=== PATIENT | male | born 1970 | race Two or more races ===

== ENCOUNTER 2024-07-05 09:27 | Emergency (ER) | payer MEDICAID, SELFPAY ==
--- NOTE | 2024-07-05 09:45 | XR_ITS ---
Examination: Duplex scan of the lower extremity, unilateral left Date and time of exam: July 05, 2024 1129 hours INDICATIONS: Left lower leg swelling and pain beginning 2 days ago Technique: Duplex scan of the extremity veins using B-mode/grayscale imaging and Doppler spectral analysis and color flow Attention is directed to internal echogenicity, compression and augmentation involving these veins, color flow assessment, spectral analysis Findings: Major deep venous structures in the extremity demonstrate normal course and caliber. There is no evidence of deep vein thrombosis. Normal color flow and spectral analysis Cystic area anterior knee 5.1 x 0.8 x 5.4 cm Impression: Negative for DVT..
--- NOTE | 2024-07-05 09:45 | XR_ITS ---
Examination: Knee, left , 3 views Technique: Knee AP, lateral, oblique 3 views Date and time of exam: July 05, 2024, 0957 hours INDICATIONS: Left knee swelling and pain beginning 3 weeks ago. FINDINGS: Severe osteopenia Old bone density anterior to the intercondylar spines No acute fracture Mild to moderate tricompartment osteoarthritis IMPRESSION: Mild to moderate tricompartment osteoarthritis
--- NOTE | 2024-07-05 09:45 | PD.EDLOWEX ---
Lower Extremity Injury RME/HPI General Chief Complaint: Extremity Injury, Lower Stated Complaint: SENT BY [facility] FOR XR OF L) KNEE; PAIN IN L) KNEE/FT Time Seen by Provider: 07/05/24 09:33 Source: patient Arrival date/time: 07/05/24 09:27 53-year-old male with no known medical history presents to the emergency room with a chief complaint of swelling and tenderness to his left knee and left calf x 4 days. Patient was sent over by his primary care provider to rule out a blood clot. Patient denies any trauma Mode of arrival: ambulatory Limitations: no limitations Related Data Home Medications ?Medication ?Instructions ?Recorded ?Confirmed No Known Home Medications 09/02/21 09/02/21 Allergies Allergy/AdvReac Type Severity Reaction Status Date / Time No Known Allergies Allergy Verified 07/05/24 09:36 Review of Systems Review of Systems Systems Reviewed: All systems reviewed, normal except as documented Constitutional Constitutional: Reports system reviewed and no additional complaints, except as documented, Denies fatigue, Denies fever(s), Denies headache(s) and Denies weakness Eyes Eyes: Reports system reviewed and no additional complaints, except as documented, Denies blurry vision and Denies change in vision ENT Ears, Nose, Mouth, and Throat: Reports system reviewed and no additional complaints, except as documented, Denies otalgia, Denies headache(s), Denies nasal congestion, Denies throat swelling and Denies vertigo Cardiovascular Cardiovascular: Reports system reviewed and no additional complaints, except as documented, Denies chest pain, Denies dyspnea and Denies dyspnea on exertion Respiratory Respiratory: Reports system reviewed and no additional complaints, except as documented, Denies chest congestion, Denies cough, Denies dyspnea, Denies dyspnea on exertion and Denies wheezing Gastrointestinal Gastrointestinal: Reports system reviewed and no additional complaints, except as documented, Denies abdominal pain, Denies cramping, Denies nausea and Denies vomiting Genitourinary Genitourinary: Reports system reviewed and no additional complaints, except as documented, Denies dysuria and Denies hematuria Musculoskeletal Musculoskeletal: Reports system reviewed and no additional complaints, except as documented, Reports arthralgias, Denies back pain and Reports joint swelling Integumentary/Breasts Skin/Breast: Reports system reviewed and no additional complaints, except as documented and Denies wounds Neurologic Neurologic: Reports system reviewed and no additional complaints, except as documented, Denies confusion, Denies headache(s), Denies lack of coordination, Denies vertigo and Denies weakness Psychiatric Psychiatric: Reports system reviewed and no additional complaints, except as documented, Denies anxiety, Denies confusion, Denies depression, Denies paranoia, Denies suicidal ideation and Denies tactile hallucinations Endocrine Endocrine: Reports system reviewed and no additional complaints, except as documented and Denies fatigue Hematologic/Lymphatic Hematologic/Lymphatic: Reports system reviewed and no additional complaints, except as documented and Denies lymphadenopathy Allergic/Immunologic Allergic/Immunologic: Reports system reviewed and no additional complaints, except as documented, Denies throat swelling, Denies urticaria and Denies wheezing ED Exam General Limitations: Present no limitations General appearance: Present alert and in no apparent distress Head Head exam: Present atraumatic Eye Eye exam: Present normal appearance, PERRL and EOMI ENT ENT exam: Present normal exam, normal oropharynx and mucous membranes moist Neck Neck exam: Present normal inspection, full ROM and trachea midline Chest Chest inspection: Present normal inspection and symmetric chest wall rise Respiratory Respiratory exam: Present normal lung sounds bilaterally Cardiovascular Cardiovascular exam: Present regular rate, normal rhythm and normal heart sounds Abdominal Exam Abdominal exam: Present soft and normal bowel sounds Extremities Exam Extremities exam: Present normal inspection and full ROM Expanded Lower Extremity Exam Hip/Pelvis exam: Present normal inspection Upper leg exam: Present normal inspection Knee exam: Present full ROM, tenderness, swelling and effusion; Absent erythema Lower leg exam: Present tenderness and Homans' sign Foot/toe exam: Present normal inspection Gait: observed and normal Back Exam Back exam: Present normal inspection and full ROM Neurological Exam Neurological exam: Present alert, oriented X3 and CN II-XII intact Psychiatric Psychiatric exam: Present normal affect and normal mood Skin Skin exam: Present warm, dry, intact and normal color Course Quality Measures none Orders Category Date Time Status US venous doppler LE LT Stat Exams 07/05/24 09:45 Completed XR knee LT 3V Stat Exams 07/05/24 09:45 Completed CBC Stat Lab 07/05/24 10:13 Completed CMP [Comprehensive Metabolic Panel] Stat Lab 07/05/24 10:13 Completed Uric Acid Stat Lab 07/05/24 10:13 Completed Ketorolac Inj [Toradol Inj] Med 07/05/24 09:47 Discontinued 30 mg IM X1 ONE Vital Signs Vital signs: Vital Signs Temperature 98.0 F 07/05/24 09:46 Pulse Rate 64 07/05/24 09:46 Respiratory Rate 16 07/05/24 09:46 Blood Pressure 131/86 H 07/05/24 09:46 Pulse Oximetry (%) 96 07/05/24 09:46 Oxygen Delivery Method Room Air 07/05/24 09:46 O2 saturation within normal limits Extremity Injury, Lower MDM Narrative MDM Narrative:: 53-year-old male with no known medical history presents to the emergency room with a chief complaint of swelling and tenderness to his left knee and left calf x 4 days. Patient was sent over by his primary care provider to rule out a blood clot. Patient denies any trauma Patient is hemodynamically stable and in no apparent distress Physical examination shows tenderness and pain to the left knee as well as left calf with a positive movements. There is no redness or warmth to the area there is a small mass above the left knee. Ultrasound Doppler of the lower extremity was completed and was negative for any DVT however there was an incidental cystic area of the anterior knee. The patient was educated to follow-up with his primary care provider for further management X-ray of the knee was completed and shows osteoarthritis Patient was discharged and educated to follow-up with primary care provider in the next 24 to 48 hours and return to the emergency room for any evidence of worsening signs or symptoms Patient data External records reviewed:: [facility] previous records Clinical information provided by:: patient Social determinants that could affect healthcare access:: none Patient has the following chronic illnesses:: No chronic illness How is presenting disease/condition affected by chronic disease/condition?: no chronic disease Evaluation data The following diagnostics were reviewed and interpreted by me:: lab results and radiology exam(s) Lab and/or radiology exams considered but not ordered:: Labs and radiology exams considered and ordered Interpretation Summary: Ultrasound Doppler lower extremity-indings: Major deep venous structures in the extremity demonstrate normal course and caliber. There is no evidence of deep vein thrombosis. Normal color flow and spectral analysis Cystic area anterior knee 5.1 x 0.8 x 5.4 cm Impression: Negative for DVT.. Medications / Prescriptions Medications or Prescriptions considered but not ordered:: Medication given Medication administrations:: Medication Administration History Discontinued Medications Ketorolac Tromethamine (Ketorolac Inj 60 Mg/2 Ml Vial) 30 mg IM X1 ONE Stop: 07/05/24 09:48 Last Admin: 07/05/24 10:53 Dose: 30 mg Documented By: KM Medication given Consultations Consultation(s) initiated? (list below): No Diagnosis Extremity Injury, Lower Differential Diagnosis: other (DVT/knee sprain/knee fracture/knee dislocation) Most likely diagnosis given after review of the tests above:: Knee sprain Admission Indicated Admission indicated?: not indicated Admission Request Was there a request for admission?: No Disposition Plan Disposition Plan: Discharge Discharge Attestation Discharge Attestation: The patient and all family members were given an opportunity to ask questions and understood the discharge instructions. Discharge instructions specifically effects, indications for sooner follow up or return to the emergency department, and the expected course of current diagnosis. Patient condition: Stable Discharge Plan Plan Patient Disposition: HOME (Self Care) Disposition Comment: Stable Prescriptions/Referrals Prescriptions/Med Rec: No Action No Known Home Medications Referrals: No Primary/Family,Physician [Primary Care Provider] - In 1 week Problem List Clinical Impression: Knee sprain Patient/Caregiver Discharge Instructions Education Materials: ED CHENG Wrap, ED Knee Sprain Additional Instructions: Por favor, consulte con lozano m?dico de cabecera en las pr?ximas 24 a 48 horas. La ecograf?a detect? roxi randy qu?stica en la parte anterior de la rodilla. Por favor, consulte con lozano m?dico de cabecera para el manejo de lupe hallazgo. Ante cualquier signo de empeoramiento de los signos o s?ntomas, acuda inmediatamente a urgencias. Print Language: Trinidadian Stand Alone Forms: [facility] Award Info., Patient Portal Info Letter PA/[employer] Supervising Physician ANN/[employer] Supervising Physician: Dr. Mahoney
[2024-07-05 09:46] VITALS: BP 131/86; PULSE 64; RESP 16; TEMP 36.7; O2SAT 96; BMI 37.2
[2024-07-05 10:30] LABS: Basophils # (Auto) 0.1 Thou/mm3 (0.0-0.2); Basophils % (Auto) 2 % (0-2.5); Eosinophils # (Auto) 0.3 Thou/mm3 (0.0-0.5); Eosinophils % (Auto) 5 % (0-10); Hematocrit 47.3 % (41.0-53.0); Immature Granulocytes % (Auto) 0 % (0-0); Immature Granulocytes Auto 0.01 Thou/mm3 (0.00-0.00); Lymphocytes # (Auto) 1.5 Thou/mm3 (1.0-4.8); Lymphocytes % (Auto) 26 % (10-50); Mean Corpuscular HGB Conc 33.8 g/dl (31.0-37.0); Mean Corpuscular Hemoglobin 31.3 pg (25.0-35.0); Mean Corpuscular Volume 92 fL (80-100); Monocytes # (Auto) 0.5 Thou/mm3 (0.0-0.8); Monocytes % (Auto) 9 % (0-12); Neutrophils # (Auto) 3.2 Thou/mm3 (1.8-7.7); Neutrophils % (Auto) 58 % (37-80); Nucleated Red Blood Cell % 0 /100 WBC (0); Platelet Count 131 Thou/mm3 (140-440); RDW Standard Deviation 43.8 fL (35.1-43.9); Red Blood Count 5.12 Miln/mm3 (4.50-5.90); White Blood Count 5.5 Thou/mm3 (3.8-10.6)
[2024-07-05 10:47] LABS: Alanine Aminotransferase 38 U/L (10-49); Albumin, Serum 3.4 gm/dL (3.5-5.0); Albumin/Globulin Ratio 0.9 (1.2-2.2); Alkaline Phosphatase 138 U/L (46-116); Anion Gap 8 (7-16); Aspartate Amino Transferase 52 U/L (0-34); BUN/Creatinine Ratio 14 Ratio (12-20); Bilirubin,Total 0.9 mg/dL (0.3-1.2); Blood Urea Nitrogen 7 mg/dL (9-23); Calcium 8.8 mg/dL (8.3-10.6); Calcium (Corrected) 9.3 mg/dL (8.5-10.1); Carbon Dioxide 23.3 mMol/L (20.0-31.0); Chloride 111 mMol/L (98-107); Creatinine (Component) 0.5 mg/dL (0.6-1.3); Estimated Creatinine Clearance 164.1 mL/min (>60); Globulin 3.6 gm/dL (2.3-3.5); Glucose 139 mg/dL (74-106); Osmolality,Calculated 283 (275-295); Potassium 3.9 mMol/L (3.4-5.1); Sodium 142 mMol/L (136-145); Uric Acid 4.9 mg/dL (3.7-9.2); eGFR > 60 See Note
[2024-07-05] MEDS: KETOROLAC INJ 60 MG/2 ML VIAL 30 MG IM (10:53)
--- NOTE | 2024-07-05 15:21 | PD.EDADDENDU ---
Emergency Room Addendum <Lydia Fountain - Last Filed: 07/05/24 15:27> Addendum Narrative: Performed physical examination of left lower extremity as requested by Diaz Klein NP. Patient was advised to F/U with PCP following negative radiology reports and unremarkable physical exam. <Guillermo Mahoney MD - Last Filed: 07/05/24 17:12> Addendum Narrative: I was requested by Diaz Klein NP. Patient to evaluate this gentleman who has a cyst on the anterior of his leg found on ultrasound to rule out DVT. DVT was ruled out his calves were not swollen. Appears to have a cyst nonerythematous nontender soft mass which does not appear to communicate with the knee spacer joint. Does not appear to be part of the supra patella bursa. Because of the cystic structure anteriorly is uncertain but it was seen on the ultrasound. Patient may have some occult trauma or maybe there is a bursa inflamed. Nonetheless the knee joint is stable all ligamentous structures were solid and no obvious laxity. Patient was advised by the [employer]GE OPERATOR to follow-up with doctor if not getting better return if redness or getting worse in any way.
== END 2024-07-05 15:10 | disposition home or self-care (01) ==
PROVIDERS: Nurse Practitioner Family; Emergency Provider Emergency Medicine
DX: S83.92XA Sprain of unspecified site of left knee, initial encounter (principal); X58.XXXA Exposure to other specified factors, initial encounter
CPT/HCPCS: 36415; 73562; 80053; 84550; 85025; 93971; 96372; 99284; J1885